=== PATIENT | female | born 1960 | race Hispanic/Latino ===

== ENCOUNTER 2017-10-11 21:00 | Emergency (ER) | payer OTHER ==
[2017-10-11] MEDS ORDERED: METHYLPREDNISOLONE SOD SUCC 40MG/ML 1ML ONE (21:19)
[2017-10-11] MEDS ORDERED: DEXAMETHASONE SOD PHOSPHATE 10MG/ML 1ML VIAL ONE (21:19)
[2017-10-11] MEDS ORDERED: ACETAMINOPHEN-CODEINE ELIXIR 5 ML UDCUP ONE (21:20)
[2017-10-11 21:32] LABS: BASOPHILS % (AUTO) 0.6 % (0.0-5.0); EOSINOPHILS % (AUTO) 0.3 % (0.0-8.0); HEMATOCRIT 37.9 % (36-48); LYMPHOCYTES % (AUTO) 8.9 % (21.0-51.0); MEAN CORPUSCULAR HEMOGLOBIN 31.4 pg (27.0-33.0); MEAN CORPUSCULAR HGB CONC 35.7 g/dL (32.0-36.0); MEAN CORPUSCULAR VOLUME 88.2 fL (79-99); MONOCYTES % (AUTO) 5.6 % (3.0-13.0); NEUTROPHILS % (AUTO) 84.6 % (40.0-77.0); PLATELET COUNT (AUTO) 246 K/uL (130-400); RED CELL DISTRIBUTION WIDTH 12.6 % (11.0-15.5)
[2017-10-11 21:43] LABS: RAPID GROUP A STREP NEGATIVE (NEGATIVE)
[2017-10-11 21:58] LABS: APPEARANCE,URINE Clear (CLEAR); BILIRUBIN,URINE Negative (NEGATIVE); COLOR,URINE Yellow (YELLOW); GLUCOSE, URINE (UA) Negative (NEGATIVE); KETONES,URINE 15 mg/dL (NEGATIVE); LEUKOCYTE ESTERASE ,URINE Small (NEGATIVE); NITRATE,URINE Negative (NEGATIVE); OCCULT BLOOD,URINE Negative (NEGATIVE); PH,URINE 6.5 (5.0-8.0); PROTEIN,URINE Negative (NEGATIVE)
[2017-10-11 22:04] LABS: BACTERIA,URINE Rare /HPF (None Seen); RBC,URINE None Seen /HPF (0-1); SQUAMOUS EPITHELIAL CELL,UR 0-2 /HPF (0-2); WBC,URINE 0-1 /HPF (0-1)
== END 2017-10-11 22:30 | disposition home or self-care (01) ==
LOC: EDH 21:00
DX: B34.9 Viral infection, unspecified (principal); J30.9 Allergic rhinitis, unspecified; Z98.890 Other specified postprocedural states
CPT/HCPCS: 36415; 71045; 81001; 85025; 87804 ×2; 87880; 96372 ×2; 99285; J1100; J2920

== ENCOUNTER 2021-06-16 14:18 | Emergency (ER) | payer OTHER ==
[~2021-06-16] VITALS: Ht 157.5 cm; Wt 68.0 kg
[2021-06-16 16:13] LABS: BASOPHILS % (AUTO) 0.3 % (0.0-5.0); HEMATOCRIT 45.1 % (36-48); LYMPHOCYTES % (AUTO) 12.5 % (21.0-51.0); MEAN CORPUSCULAR HEMOGLOBIN 29.4 pg (27.0-33.0); MEAN CORPUSCULAR HGB CONC 32.4 g/dL (32.0-36.0); MEAN CORPUSCULAR VOLUME 90.9 fL (79-99); MONOCYTES % (AUTO) 6.7 % (3.0-13.0); NEUTROPHILS % (AUTO) 80.1 % (40.0-77.0); PLATELET COUNT (AUTO) 243 K/uL (130-400); RED BLOOD CELL COUNT(AUTO) 4.96 MIL/uL (4.00-5.50); WHITE BLOOD COUNT (AUTO) 7.3 K/uL (4.8-10.8)
[2021-06-16 16:23] LABS: CREATININE 0.8 mg/dL (0.5-1.5); POTASSIUM 4.3 mmol/L (3.5-5.1)
[2021-06-16 16:27] LABS: ALBUMIN 3.6 g/dL (3.5-5.0); BILIRUBIN,TOTAL 0.4 mg/dL (0.2-1.0); TOTAL PROTEIN, SERUM 7.6 g/dL (6.0-8.3)
[2021-06-16 17:22] LABS: BILIRUBIN,URINE Negative (NEGATIVE); COLOR,URINE Yellow (YELLOW); GLUCOSE, URINE (UA) Negative (NEGATIVE); KETONES,URINE Negative (NEGATIVE); LEUKOCYTE ESTERASE ,URINE Small (NEGATIVE); NITRATE,URINE Negative (NEGATIVE); OCCULT BLOOD,URINE Negative (NEGATIVE); PH,URINE 5.5 (5.0-8.0); PROTEIN,URINE Trace mg/dL (NEGATIVE); UROBILINOGEN,URINE 0.2 mg/dL (0.2-1.0)
[2021-06-16 17:23] LABS: APPEARANCE,URINE CLEAR (CLEAR)
[2021-06-16 17:32] LABS: BACTERIA,URINE Few /HPF (None Seen); MUCUS,URINE Moderate LPF (None Seen); RBC,URINE 0-1 /HPF (0-1); SQUAMOUS EPITHELIAL CELL,UR Moderate /HPF (0-2)
[2021-06-16] MEDS ORDERED: ONDA4TAB10 PO (17:36)
[2021-06-16] MEDS ORDERED: ONDANSETRON ODT 4MG TAB ONE (17:38)
[2021-06-16 17:51] VITALS: BP 107/54
[2021-06-16] MEDS ORDERED: ONDANSETRON ODT 4MG TAB SL ONE (18:00)
== END 2021-06-16 18:02 | disposition home or self-care (01) ==
LOC: EDH 14:18
DX: U07.1 COVID-19 (principal); R53.1 Weakness; R11.0 Nausea; Z79.899 Other long term (current) drug therapy
CPT/HCPCS: 36415; 71045; 80053; 81001; 85025